=== PATIENT | male | born 1985 | race Caucasian/White ===

== ENCOUNTER 2019-07-24 12:43 | Emergency (ER) | payer OTHER ==
[~2019-07-24] VITALS: Ht 193 cm; Wt 90.7 kg
[2019-07-24 13:30] LABS: Influenza A Negative (NEGATIVE); Influenza B Negative (NEGATIVE)
== END 2019-07-24 14:12 | disposition home or self-care (01) ==
LOC: ER 12:43
PROVIDERS: Physician Assistant
DX: B34.9 Viral infection, unspecified (principal); Z88.0 Allergy status to penicillin
CPT/HCPCS: 87804; 99283; A9270-GY

== ENCOUNTER → 2023-08-15 | Outpatient (CLI) | payer SELFPAY | END | disposition home or self-care (01) | LOC: LAB SHORT 13:00 → LAB 13:00 | DX: R30.0 Dysuria (principal) | CPT/HCPCS: 87086 ==